=== PATIENT | male | born 1955 | race Caucasian/White ===

== ENCOUNTER 2017-12-10 10:03 | Emergency (ER) | payer BC, OTHER ==
[2017-12-10 11:57] LABS: OCCULT BLOOD STOOL POSITIVE (NEGATIVE)
== END 2017-12-10 13:36 | disposition home or self-care (01) ==
LOC: E/R 10:03
DX: K62.5 Hemorrhage of anus and rectum (principal)
CPT/HCPCS: 82270; 99284

== ENCOUNTER 2018-01-16 10:22 | Emergency (ER) | payer BC | END 2018-01-16 11:11 | disposition home or self-care (01) | LOC: FTE 10:22 | DX: Z76.0 Encounter for issue of repeat prescription (principal); I10 Essential (primary) hypertension | CPT/HCPCS: 82962; 99281 ==